=== PATIENT | male | born 1975 | race Caucasian/White ===

== ENCOUNTER → 2020-02-26 | Outpatient (CLI) | payer BC ==
--- NOTE | 2020-02-26 16:33 | US ---
EXAMINATION TYPE: US carotid duplex BILAT DATE OF EXAM: 02/26/2020 COMPARISON: NONE CLINICAL HISTORY: R55 SYNCOPE AND COLLAPSE. syncope EXAM MEASUREMENTS: RIGHT: Peak Systolic Velocity (PSV) cm/sec ----- Right CCA: 79.3 ----- Right ICA: 115.7 ----- Right ECA: 96.8 ICA/CCA ratio: 1.5 RIGHT: End Diastole cm/sec ----- Right CCA: 28.5 ----- Right ICA: 35.7 ----- Right ECA: 31.4 LEFT: Peak Systolic Velocity (PSV) cm/sec ----- Left CCA: 67.7 ----- Left ICA: 73.5 ----- Left ECA: 80.8 ICA/CCA ratio: 1.1 LEFT: End Diastole cm/sec ----- Left CCA: 24.1 ----- Left ICA: 16.9 ----- Left ECA: 25.6 VERTEBRALS (direction of flow): Right Vertebral: Antegrade Left Vertebral: Antegrade Rhythm: Normal Edge scale images show mild peripheral hyperechoic plaque at carotid bulb level bilaterally by veloci ty measurements and ratios in the visualized portion of both internal carotid arteries is within norm al limits IMPRESSION: Mild plaque bilaterally without hemodynamic significant stenosis seen in either internal carotid artery . Criteria for Assigning % of Stenosis / Diameter reduction (Estimation based on the indirect measurements of the internal carotid artery velocities (ICA PSV). 1. Normal (no stenosis)=ICA PSV < 125 cm/s: ratio < 2.0: ICA EDV<40 cm/s. 2. Less than 50% stenosis=ICA PSV < 125 cm/s: ratio < 2.0: ICA EDV<40 cm/s. 3. 50 to 69% stenosis=ICA PSV of 125 to 230 cm/s: ration 2.0 ? 4.0: ICA EDV 40-100 cm/s. 4. Greater than 70% stenosis to near occlusion= ICA PSV > 230 cm/s: ratio > 4.0: ICA EDV > 100 cm/s. 5. Near occlusion= ICA PSV velocities may be low or undetectable: variable ratio and ICA EDV. 6. Total occlusion=unable to detect flow.
--- NOTE | 2020-02-27 07:33 | ECHOF ---
Referral Reason:R55 Syncope and collapse MEASUREMENTS -------- HEIGHT: 182.9 cm WEIGHT: 85.3 kg BP: RVIDd: 2.6 cm (< 3.3) IVSd: 1.2 cm (0.6 - 1.1) LVIDd: 4.4 cm (3.9 - 5.3) LVPWd: 0.9 cm (0.6 - 1.1) IVSs: 1.4 cm LVIDs: 3.1 cm LVPWs: 1.2 cm LAESV Index (A-L): 20.11 ml/m Ao Diam: 2.8 cm (2.0 - 3.7) AV Cusp: 1.8 cm (1.5 - 2.6) LA Diam: 3.5 cm (2.7 - 3.8) MV EXCURSION: 17.007 mm (> 18.000) MV EF SLOPE: 119 mm/s (70 - 150) EPSS: 0.7 cm MV E Scooby: 0.78 m/s MV DecT: 133 ms MV A Scooby: 0.63 m/s MV E/A Ratio: 1.23 RAP: 5.00 mmHg RVSP: 17.66 mmHg FINDINGS -------- Sinus rhythm. This was a technically good study. LV size, wall thickness and systolic function are normal, with an EF greater than 55%. The left wiliam tricular size is normal. The diastolic filling pattern is normal for the age of the patient 8.58. The right ventricle is normal in size. Normal LA size by volume 22+/-6 ml/m2. The right atrial size is normal. The aortic valve is trileaflet, and appears structurally normal. No aortic stenosis or regurgitation. The mitral valve is normal. Mild mitral regurgitation is present. The tricuspid valve appears structurally normal. Mild tricuspid regurgitation present. Right vent ricular systolic pressure is normal at < 35 mmHg. There is no pulmonic regurgitation present. The aortic root size is normal. There is no pericardial effusion. CONCLUSIONS -------- 1. LV size, wall thickness and systolic function are normal, with an EF greater than 55%. 2. Normal LA size by volume 22+/-6 ml/m2. 3. The aortic valve is trileaflet, and appears structurally normal. No aortic stenosis or regurgitati on. 4. Mild mitral regurgitation is present. 5. Mild tricuspid regurgitation present. 6. There is no pericardial effusion. OPTICS TEST TECHNICIAN: Anali Gamboa RDCS
== END | disposition home or self-care (01) ==
LOC: RADECHMAIN 14:52
PROVIDERS: ATTEND Family Medicine
DX: I08.1 Rheumatic disorders of both mitral and tricuspid valves (principal); R55 Syncope and collapse
CPT/HCPCS: 93306; 93880

== ENCOUNTER → 2022-01-02 | Outpatient (CLI) | payer BC ==
--- NOTE | 2022-01-05 11:31 | MR ---
EXAMINATION TYPE: MR cervical spine wo con DATE OF EXAM: 01/02/2022 INDICATION: Patient age:Male; 46 years old; Reason for study: M54.2, M47.22, M25.78. M50.121.M50.122; Neck pain, numbness in hands/feet. COMPARISON: None. TECHNIQUE: Multi planar, multi sequence imaging was performed utilizing: T1-weighted, T2-weighted, an d turbo inversion recovery imaging of the cervical spine. IV Contrast: None FINDINGS: Alignment: The cervical vertebral bodies have preserved heights. There is straightening of the alignm ent of the cervical spine Bones: There is Modic endplate changes most pronounced at C4-C5 and C5-C6 with osteophyte formation p resent Multilevel degenerative disc disease is noted and most pronounced at the C4-C5 and C5-C6 verte bral levels. Cord: Increased cord signal at C4-C5 and to a lesser extent C5-C6 secondary to severe spinal canal st enosis from degeneration changes at these levels.None Discs: Disc desiccation and narrowing most pronounced at C5-C6 C2-C3: No significant disc pathology. The spinal canal is patent. No neural foraminal stenosis. C3-C4: A disc osteophyte complex is present which minimally narrows the ventral subarachnoid space. Bilateral facet and uncovertebral joint arthropathy are present with mild bilateral neural foraminal stenosis. C4-C5: Disc osteophyte complex which is eccentric right resulting in severe spinal canal stenosis wit h increased cord signal. There is moderate bilateral neural foraminal stenosis at this level. C5-C6: Disc osteophyte complex resulting in severe spinal canal stenosis with increased cord signal. There is severe bilateral neural foraminal stenosis at this level. C6-C7: No significant disc pathology. The spinal canal is patent. Bilateral facet and uncovertebral joint arthropathy are present with moderate to mild right left neural foraminal stenosis. C7-T1: No significant disc pathology. The spinal canal is patent. No neural foraminal stenosis. Findings communicated to Roni lu for Dr. Soto on 01/05/2022 10:53 AM via kimo estrella by Dr. Gunner Yee. IMPRESSION: Myelomalacia most pronounced at C4-C5 and C5-C6 from severe spinal canal stenosis from disc osteophyt e complex's, C4-C5 greater than C5-6. Additional bilateral severe C5-C6 and moderate C4-C5 neural for aminal stenosis.
== END | disposition home or self-care (01) ==
LOC: RADMRIMAIN 15:26
PROVIDERS: ATTEND Orthopaedic Surgery Orthopaedic Surgery of the Spine
DX: M47.22 Other spondylosis with radiculopathy, cervical region (principal); M50.121 Cervical disc disorder at C4-C5 level with radiculopathy; M50.122 Cervical disc disorder at C5-C6 level with radiculopathy; M99.71 Connective tissue and disc stenosis of intervertebral foramina of cervical region; M25.78 Osteophyte, vertebrae; G95.89 Other specified diseases of spinal cord
CPT/HCPCS: 72141

== ENCOUNTER → 2022-02-04 | Outpatient (CLI) | payer BC ==
--- NOTE | 2022-02-04 13:29 | XR ---
EXAMINATION TYPE: XR chest 2V DATE OF EXAM: 02/04/2022 1:16 PM COMPARISON: Chest radiographs from 05/20/2015 TECHNIQUE: XR chest 2V Frontal and lateral views of the chest. CLINICAL INDICATION:Male, 46 years old with history of Z01.818 Pre surgical; FINDINGS: Lungs/Pleura: There is no evidence of pleural effusion, focal consolidation, or pneumothorax. Pulmonary vascularity: Unremarkable. Heart/mediastinum: Cardiomediastinal silhouette is unremarkable. Musculoskeletal: No acute osseous pathology. IMPRESSION: No acute cardiopulmonary disease/process.
[2022-02-04 13:53] LABS: Partial Thromboplastin Time 27.1 sec (22.0-30.0); Prothrombin Time 10.7 sec (9.0-12.0)
[2022-02-04 17:50] LABS: HCT 49.4 % (39.6-50.0); HGB 17.6 g/dL (13.0-17.0); MCH 39.3 pg (27.0-32.0); MCHC 35.6 g/dL (32.0-37.0); MCV 110.3 fL (80.0-97.0); Mean Platelet Volume 9.9 fL (9.5-12.2); NRBC Per 100 WBC 0 /100 WBCS (0.0-0.0); Platelet Count 316 X 10*3/uL (140-440); RBC 4.48 X 10*6/uL (4.40-5.60); RDW 12.9 % (11.5-14.5); WBC 11.51 X 10*3/uL (4.50-10.00)
[2022-02-04 18:53] LABS: Basophils # (A) 0.14 X 10*3/uL (0.00-0.10); Basophils % (A) 1.2 %; Eosinophils % (A) 2.6 %; Immature Grans, Automated 0.4 %; Lymphocytes # (A) 3.18 X 10*3/uL (0.90-5.00); Lymphocytes % (A) 27.6 %; Monocytes % (A) 8.7 %; Neutrophils # (A) 6.84 X 10*3/uL (1.80-7.70); Neutrophils % (A) 59.5 %
[2022-02-04 19:40] LABS: African American GFR (CKD) 116.8 (60.0-200.0); Anion Gap 12.1 mmol/L (10.00-18.00); BUN/Creat Ratio 8.15 Ratio (12.00-20.00); Blood Urea Nitrogen 7.3 mg/dL (9.0-27.0); Calcium 10.2 mg/dL (8.7-10.3); Non-African American GFR(CKD) 100.7 (60.0-200.0); Potassium 4.7 mmol/L (3.5-5.5)
[2022-02-04 22:51] LABS: Appearance,Urine Clear (Clear); Bilirubin,Urine Negative (Negative); Blood,Urine Negative (Negative); Color,Urine Yellow (Yellow); Ketones,Urine Negative (Negative); Nitrite,Urine Negative (Negative); Specific Gravity,Urine 1.008 (1.001-1.030); Urobilinogen,Urine 0.2 (0.2,1.0)
== END | disposition home or self-care (01) ==
LOC: LABPAT 12:38
PROVIDERS: ATTEND Orthopaedic Surgery Orthopaedic Surgery of the Spine
DX: Z01.818 Encounter for other preprocedural examination (principal); M50.020 Cervical disc disorder with myelopathy, mid-cervical region, unspecified level
CPT/HCPCS: 71046; 80048; 81003; 85025; 85610; 85730; 93005

== ENCOUNTER 2022-02-18 08:39 | Inpatient (IN) | payer BC ==
[~2022-02-18 08:39] MED LIST: LIDOCAINE 1% (10MG/ML) FOR IV START INTRADERMA PRN; ONDANSETRON 4 MG/2 ML VIAL IVP ONE
[2022-02-18] MEDS: LACTATED RINGERS 1,000 ML IV SCH (09:30)
[2022-02-18] MEDS ORDERED: DEXAMETHASONE SOD PHOSPHATE 4 MG/ML 1 ML VIAL IVP ONE (09:38)
[2022-02-18] MEDS ORDERED: THROMBIN (BOVINE) 5,000 UNIT VIAL TOPICAL ONE (10:35)
[2022-02-18] MEDS ORDERED: GELATIN SPONGE,ABSORB (LARGE) 1 EACH SPONGE TOPICAL ONE (10:35)
[2022-02-18] MEDS ORDERED: LIDOCAINE 0.5%-EPI 1:200,000 50 ML VIAL SQ ONE (10:35)
[2022-02-18] MEDS ORDERED: ceFAZolin 1,000 MG in SODIUM CHLORIDE 0.9% 1,000 ML IRRIGATION ONE (11:03)
--- NOTE | 2022-02-18 12:07 | XR ---
EXAMINATION TYPE: XR cervical spine 1V DATE OF EXAM: 02/18/2022 COMPARISON: None HISTORY: Needle placement TECHNIQUE: Crosstable lateral mobile cervical spine FINDINGS: Needle is directed to the C5-6 level. IMPRESSION: 1. Crosstable lateral cervical spine for needle localization
[2022-02-18] MEDS ORDERED: CYCLOBENZAPRINE 10 MG TAB PO PRN (12:49)
[2022-02-18] MEDS ORDERED: HYDROmorphone 1 MG/ML 1 ML SYRINGE IVP PRN (12:49)
[2022-02-18] MEDS ORDERED: ONDANSETRON 4 MG/2 ML VIAL IVP PRN (12:49)
[2022-02-18] MEDS ORDERED: HYDROcodone/APAP 5-325MG 1 EACH TAB PO PRN (12:49)
[2022-02-18] MEDS ORDERED: LACTATED RINGERS 1,000 ML IV ONE (12:50)
--- NOTE | 2022-02-18 12:52 | XR ---
EXAMINATION TYPE: XR cervical spine 1V DATE OF EXAM: 02/18/2022 COMPARISON: Earlier exam HISTORY: Post cervical fusion TECHNIQUE: Crosstable lateral cervical spine FINDINGS: Anterior cervical fusion is present C4-C6. Disc spacers are present. IMPRESSION: 1. Post anterior cervical fusion C4-C6
--- NOTE | 2022-02-18 12:56 | P.OP ---
Date of Procedure: 02/18/22 Preoperative Diagnosis: Cervical myelopathy, upper extremity weakness, upper extremity radiculopathy, severe cervical stenosis C4 5 C5 6, herniated nucleus pulposis C4 5 C5 6, degenerative disc disease, ossific spurring, neck pain Postoperative Diagnosis: Cervical myelopathy, upper extremity weakness, upper extremity radiculopathy, severe cervical stenosis C4 5 C5 6, herniated nucleus pulposis C4 5 C5 6, degenerative disc disease, ossific spurring, neck pain Anesthesia: GETA Pathology: none sent Condition: stable Disposition: PACU Description of Procedure: BRIEF OPERATIVE NOTE Preoperative Diagnosis:Cervical myelopathy, upper extremity weakness, upper extremity radiculopathy, severe cervical stenosis C4 5 C5 6, herniated nucleus pulposis C4 5 C5 6, degenerative disc disease, ossific spurring, neck pain Postoperative Diagnosis:Cervical myelopathy, upper extremity weakness, upper extremity radiculopathy, severe cervical stenosis C4 5 C5 6, herniated nucleus pulposis C4 5 C5 6, degenerative disc disease, ossific spurring, neck pain Procedure: Anterior cervical decompression with discectomy and fusion C4 5 C5 6 Partial corpectomy of C5 approximately 50% Placement of interbody graft C4 5 C5 6 Application of anterior cervical plate C4 5 and 6 Surgeon: Dr. Soto Lure Maker: Aubrey Song is present throughout the entire the case persistence during positioning, dissection, exposure, visualization, and all crucial elements of the case as well as closure. Anesthesia: General anesthesia Estimated blood loss: Approximately 100 mL Complications: None apparent Components implanted: K2M Hernando anterior cervical plate system with screws and Vikos interbody allograft bone graft and 1 mL of DBX bone putty Disposition: To recovery room in good stable condition. OPERATIVE INDICATIONS The patient has had long-standing issues in their neck and upper extremities. His been having significant worsening over the past couple of months. He is having weakness in his upper extremities as well. He is having more and more trouble doing regular activities and also has starting have some trouble with his balance. He was exhibiting symptoms of myelopathy and was found have severe stenosis C4 5 C5 6 with disc herniation a correlate well with his neck and upper extremity and myelopathic symptoms. The patient has been through conservative treatment. We discussed various treatment options including surgery, and the patient wishes to proceed with surgery We discussed the risk, patient's alternat josé and benefits of surgery including but not limited to, risk of bleeding risk of infection, risk of need for further surgery, risk of decreased, loss of motion, muscle function, malunion nonunion, hardware failure, nerve damage, paralysis, heart attack, and . OPERATIVE SUMMARY After discussing all the risks, patient alternatives and benefits at length, the patient elected to proceed with surgical intervention, signed informed consent, and presented for their procedure. The patient was seen and examined in the preoperative holding area and the surgical site was marked. The patient was given antibiotics and brought to the operating room. The patient was positioned on the operating room table in a supine position being careful to pad any bony prominences and pressure points. The patient was sedated and intubated by anesthesia in standard fashion. Once the airway and C- spine were stabilized the patient's arms were padded and tucked at her side, with her shoulders gently taped. The head was placed in a donut pad with the neck in good neutral alignment and position. We were careful to maintain the patient's cervical spine and good neutral alignment and position throughout. The patient was prepped and draped in a normal standard fashion. An appropriate timeout and keystone protocol performed. We were able to proceed with the surgery. The local wound area was infiltrated with local anesthetic. An incision was made transversely approximately 2-1/2 cm over the appropriate levels at C5. Dissection was taken down subcutaneously to the level of the platysma which was split in line with its fibers. Dissection was taken with a carotid approach, with the trachea and esophagus medial and the carotid sheath laterally. We dissected down to the anterior surface of the vertebral bodies. Intraoperative x-ray was taken which showed a marker at the appropriate level. With the appropriate level positively confirmed, we were able to proceed with discectomy at the appropriate levels starting at C4 5. All of the operative levels were exposed appropriately. The patient had all their twitches back, and there was no evidence of recurrent laryngeal issue. The wound was copiously irrigated and suctioned dry as had been done periodically throughout the case. At the appropriate level/levels, starting at C5 6 and C4 5 I established an annulotomy with an 11 blade scalpel. A discectomy was performed with a combination of pituitary rongeurs, curettes, a high-speed bur, and Kerrison rongeurs. The posterior longitudinal ligament was taken down as were any faculty criminal justice ior osteophytes. At C5 6 there was some calcified disc material that was adherent to the dura and was unable to be removed. I was able to remove significant portions of the vertebrae at C5 in order to obtain further decompression behind the vertebral body. This was done inferiorly at C5 as well as cephalad at C5 during the decompression and discectomies. This gave good central and bilateral foraminal decompression. With the decompression and partial corpectomy I felt that I did not have to perform a total corpectomy. I removed approximately 50% of the vertebral body for the decompression. As able get excellent central and bilateral foraminal decompression. There is no evidence of any dural tear or leak. The endplates were prepared with a high- speed bur. With the endplates in good parallel position, I was able to size for the appropriate size interbody graft. The wound was irrigated and suctioned dry the graft was prepared and malleted into position. It had good alignment and position with the anterior surface flush with the anterior surface of the vertebral bodies. This was done similarly the appropriate levels at C5 6 and at C4 5. With the grafts intact, I was able to measure and contour and appropriate sized plate. The plate was positioned at the midline over the appropriate levels at C4 5 and 6. Screw holes were established with a hand drill and drill guide. Screws were placed in good alignment and position with excellent bony purchase. They were seated under the locking device. The construct was checked and found to be stable. Intraoperative x-ray was taken which showed good alignment and position of the implants at the appropriate levels. There was no evidence of any dural tear or leak. Good hemostasis was maintained. The wound was copiously irrigated and suctioned dry as had been done periodically throughout the case. The platysma was closed with absorbable suture. The subcutaneous tissue was closed. The subcuticular tissue was closed with absorbable suture. The wound was cleaned and dried and dressed appropriately. A soft cervical collar was placed appropriately. The patient was woken up by anesthesia, extubated, transferred back gently to their hospital bed and brought to the recovery room in good stable condition. The patient will be admitted to the hospital for appropriate postoperative care, medical management and monitoring. We will continue to follow them closely about the postoperative course.
[2022-02-18] MEDS: HYDROmorphone 0.5 MG/0.5 ML SYRINGE IVP PRN ×3 (13:41→20:51)
[2022-02-18] MEDS: SODIUM CHLORIDE 0.9% 1,000 ML IV SCH (14:20)
[2022-02-18] MEDS: BENZOCAINE/MENTHOL LOZENG 1 EACH LOZENGE MUCOUS MEM PRN ×2 (15:33→19:21)
[2022-02-18] MEDS ORDERED: LORazepam 2 MG/ML INJ IV PRN ×3 (17:25)
[2022-02-18] MEDS ORDERED: LORazepam 0.5 MG TAB PO PRN (17:25)
[2022-02-18] MEDS ORDERED: LORazepam 1 MG TAB PO PRN (17:25)
[2022-02-18] MEDS: IPRATROPIUM-ALBUTEROL 3 ML NEB INHALATION PRN (20:35)
[2022-02-19] MEDS: BENZOCAINE/MENTHOL LOZENG 1 EACH LOZENGE MUCOUS MEM PRN ×2 (01:15→07:15)
[2022-02-19] MEDS: HYDROmorphone 0.5 MG/0.5 ML SYRINGE IVP PRN (01:16)
[2022-02-19] MEDS: SODIUM CHLORIDE 0.9% 1,000 ML IV SCH (03:11)
[2022-02-19] MEDS: LACTATED RINGERS 1,000 ML IV SCH (05:33)
[2022-02-19 07:52] VITALS: BP 120/78; RESP 16; TEMP 98
--- NOTE | 2022-02-19 08:21 | P.HPIM ---
History of Present Illness H&P Date: 02/18/22 Patient is a 46-year-old male with asthma, hypertension, and tobacco dependency who presented for elective C4 through 6 anterior cervical decompression with fusion. He tolerated the procedure well without any immediate postoperative complications. Patient seen and examined at bedside. He denies any neck pain. He continues to have some numbness and tingling in his bilateral arms which has been present for 6 months. He denies any lightheadedness, dizziness, nausea, vomiting, chest pain, shortness of breath postoperatively. He does feel himself wheezing a little bit which is not abnormal for him. He was supposed to start on a steroid inhaler several weeks ago, it was cost prohibitive and he did not fill the prescription. He continues to smoke. He denies any recent illnesses. Pertinent positives and negatives as discussed in HPI, a complete review of systems was performed and all other systems are negative. Vital signs reviewed General: nontoxic, no distress, appears at stated age Derm: warm, dry Head: atraumatic, normocephalic, symmetric Eyes: EOMI, no lid lag, anicteric sclera, pupils equal round reactive to light ENT: Nose and ears atraumatic, no thrush, no pharyngeal erythema Neck: soft cervical collar in place Mouth: no lip lesion, mucus membranes moist Cardiovascular: S1S2 reg, no murmur, positive posterior tibial pulse bilateral, no edema, capillary refill less than 2 seconds Lungs: clear to auscultation bilateral, no rhonchi, no rales, no wheeze, no accessory muscle use Abdominal: soft, nontender to palpation, no guarding, no appreciable organomegaly, normal bowel sounds Ext: no gross muscle atrophy, muscle strength 5 out of 5 in all 4 extremities, no contractures Neuro: CN II-XII grossly intact, light touch intact all 4 extremities, finger to nose within normal limits, Psych: Alert, oriented, appropriate affect Assessment/Plan: Patient 46-year-old male status post C4 to C6 anterior cervical decompression with fusion. Hypertension, controlled -Resume metoprolol -Follow blood pressures Asthma, moderate without exacerbation -When necessary bronchodilators -Attempt Advair prescription on discharge as it appears patient has been prescribed this in the past. Nicotine dependency - cessation ETOH use - [facility] Thank you for allowing us to participate in the care of this pleasant patient. Do not hesitate to contact us with questions. Someone can be reached from the [facility] hospitalist group all hours of the day at [phone] or via [employer]. Past Medical History Past Medical History: Asthma, Hypertension, Musculoskeletal Disorder Additional Past Medical History / Comment(s): karen hands are numb, sometimes feet numb, & legs feel weak @times History of Any Multi-Drug Resistant Organisms: None Reported Past Surgical History: Back Surgery Additional Past Surgical History / Comment(s): July 2014 Past Anesthesia/Blood Transfusion Reactions: No Reported Reaction Past Psychological History: No Psychological Hx Reported Smoking Status: Current every day smoker Past Alcohol Use History: Occasional Additional Past Alcohol Use History / Comment(s): down to almost 1ppd since age of 13 Past Drug Use History: None Reported - Past Family History Father Family Medical History: Diabetes Mellitus Mother Family Medical History: No Reported History Medications and Allergies Home Medications Medication Instructions Recorded Confirmed Type Albuterol Sulfate [Proair Hfa] 2 puff INHALATION QID PRN 02/13/22 02/18/22 History Ergocalciferol [Vitamin D2 (1250 1,250 mcg PO WEEKLY 02/13/22 02/18/22 History Mcg = 32381 Iu)] Metoprolol Succinate (ER) [Toprol 50 mg PO DAILY 02/13/22 02/18/22 History Xl] Allergies Allergy/AdvReac Type Severity Reaction Status Date / Time Penicillins Allergy Dyspnea Verified 02/18/22 09:14 Physical Exam Osteopathic Statement: *. No significant issues noted on an osteopathic structural exam other than those noted in the History and Physical/Consult. Vitals: Vital Signs Temp Pulse Resp BP Pulse Ox 02/18/22 16:34 63 113/67 93 L 02/18/22 16:19 90 112/65 94 L 02/18/22 16:03 89 111/74 92 L 02/18/22 15:48 91 120/58 91 L 02/18/22 15:34 96 113/78 93 L 02/18/22 15:18 85 117/76 93 L 02/18/22 15:03 83 117/81 94 L 02/18/22 14:59 98.3 F 78 17 117/81 02/18/22 14:48 72 125/73 90 L 02/18/22 14:33 81 137/83 92 L 02/18/22 14:15 68 16 122/77 92 L 02/18/22 14:00 83 16 135/81 92 L 02/18/22 13:45 69 16 150/85 92 L 02/18/22 13:30 68 16 144/87 96 02/18/22 13:15 67 16 145/83 99 02/18/22 12:58 96.8 F L 66 16 138/90 99 02/18/22 09:22 97.0 F L 81 14 148/80 98 Intake and Output 02/18/22 02/18/22 02/18/22 06:59 14:59 22:59 Intake Total 1751 Output Total 100 Balance 1651 Intake: IV 1751 Output: Estimated Blood Loss 100 Other: Weight 84 kg Thrombosis Risk Factor Assmnt - Choose All That Apply Each Factor Represents 1 point: Age 41-60 years, Obesity (BMI >25) Each Risk Factor Represents 2 Points: Major surgery Thrombosis Risk Factor Assessment Total Risk Factor Score: 4 Thrombosis Risk Factor Assessment Level: Moderate Risk
[2022-02-19] MEDS: IPRATROPIUM-ALBUTEROL 3 ML NEB INHALATION PRN ×2 (08:53→11:49)
[2022-02-19] MEDS ORDERED: METOPROLOL SUCCINATE (ER) 50 MG TAB.ER.24H PO SCH (09:00)
[2022-02-19] MEDS ORDERED: guaiFENesin 600 MG TABLET.ER PO SCH (10:00)
[2022-02-19] MEDS ORDERED: PROPOFOL 10 MG/ML 20 ML VIAL IV ONE (10:31)
[2022-02-19] MEDS ORDERED: ALBUTEROL INHALER 60 PUFF/8 GM INHALER (MHU) INHALATION ONE (10:31)
[2022-02-19] MEDS ORDERED: LIDOCAINE 4% LTA KIT (4 ML) TOPICAL ONE (10:31)
[2022-02-19] MEDS ORDERED: NEOSTIGMINE 1 MG/ML 10 ML VIAL ONE (10:31)
[2022-02-19] MEDS ORDERED: ROCURONIUM 10 MG/ML (5 ML VIAL) IV ONE (10:31)
[2022-02-19] MEDS ORDERED: DEXAMETHASONE SOD PHOS (MDV) 100 MG/10 ML VIAL ONE (10:31)
[2022-02-19] MEDS ORDERED: PHENYLEPHRINE-0.9% NACL SYG 1,000 MCG/10 ML SYRINGE ONE (10:31)
[2022-02-19] MEDS ORDERED: LIDOCAINE 2% INJ 20 MG/ML (2 ML VIAL) ONE (10:31)
[2022-02-19] MEDS ORDERED: fentaNYL (PF) 50 MCG/ML 2 ML AMP ONE (10:31)
[2022-02-19] MEDS ORDERED: MIDAZOLAM 2 MG/2 ML VIAL ONE (10:31)
[2022-02-19] MEDS ORDERED: HYDROmorphone (PF) 1 MG/ML ONE (10:31)
[2022-02-19] MEDS ORDERED: SUCCINYLCHOLINE CHLORIDE 200 MG/10 ML VIAL IV ONE (10:31)
[2022-02-19] MEDS ORDERED: GLYCOPYRROLATE 0.2 MG/ML 2 ML VIAL ONE (10:31)
--- NOTE | 2022-02-19 11:15 | P.DS ---
Providers Date of admission: 02/18/22 08:39 Attending physician: Melisa Soto Consults: 02/18/22 16:29 Consult Physician Routine Consulting Provider: Willi Physician Consult Reason/Comments: medical management Do you want consulting provider notified?: Yes Primary care physician: Joey Eng [place] Hospital Course: The patient presented on the day of admission as per their operative note. He underwent anterior cervical decompression with discectomy and fusion C4 5 C5 6 for his severe cervical stenosis with cervical myelopathy and upper extremity radiculopathy and weakness. He feels his legs and his arms are doing much better. He still has some numbness and tingling in his hands and fingers as expected. He feels his neck is doing well. His tolerating soft diet. Physical Exam The incision site is clean dry and intact. There is no erythema no drainage. There is no purulence no evidence of infection. His neck is soft and supple without any drainage. He swallowing well with soft foods and liquids. Abdomen soft and nontender. Chest has good excursion with deep inspiration and expiration. The patient has active and passive range of motion intact at the upper and lower extremities. There is no acute change in neurologic status. He has good motion at his upper extremities. Hospital Course Postoperative day #1 status post anterior cervical decompression with discectomy and fusion C4 5 C5 6 for his severe cervical stenosis with cervical myelopathy upper extremity radiculopathy and weakness. He feels he is making good progress and he seems to be doing well. The patient has been making good progress postoperatively. I explained to them that his likely that he will have healing of the nerves over the next several months to a over a whole year. We do not expect acute resolution of the symptoms but it is encouraging that he is making progress. They have completed the prophylactic antibiotics without any signs or symptoms of infection. The patient has been able to advance their diet, and is tolerating diet adequately. The pain was initially controlled with IV medications and is now controlled appropriately with oral medications. The patient has been able to increase their mobilization. The patient has progressed appropriately. I think they are in good stable condition for discharge today. They will be sent home with appropriate prescriptions. I answered their questions to the best of my ability in a language that they can understand and they are agreeable with the plan. They will follow up as directed in approximately 2 weeks or sooner if he is having problems. Patient Condition at Discharge: Good Plan - Discharge Summary Discharge Rx Participant: Yes New Discharge Prescriptions: New HYDROcodone/APAP 5-325MG [[place] 5-325] 1 tab PO Q4HR PRN #42 tab PRN Reason: Pain No Action Metoprolol Succinate (ER) [Toprol Xl] 50 mg PO DAILY Albuterol Sulfate [Proair Hfa] 2 puff INHALATION QID PRN PRN Reason: Shortness Of Breath Ergocalciferol [Vitamin D2 (1250 Mcg = 69820 Iu)] 1,250 mcg PO WEEKLY Discharge Medication List Albuterol Sulfate [Proair Hfa] 2 puff INHALATION QID PRN 02/13/22 [History] Ergocalciferol [Vitamin D2 (1250 Mcg = 55745 Iu)] 1,250 mcg PO WEEKLY 02/13/22 [History] Metoprolol Succinate (ER) [Toprol Xl] 50 mg PO DAILY 02/13/22 [History] HYDROcodone/APAP 5-325MG [[place] 5-325] 1 tab PO Q4HR PRN #42 tab 02/19/22 [Rx] Follow up Appointment(s)/Referral(s): Melisa Soto DO [Doctor of Osteopathic Medicine] - 2 Weeks Activity/Diet/Wound Care/Special Instructions: Keep site clean. May shower with waterproof Tegaderm intact. Do not soak in a tub. After 72 hours postoperatively, patient May remove dressing and then may shower with area uncovered. Leave glue intact and allow it to fray off on its own. May ambulate as tolerated. Avoid heavy or rigorous activity. No repetitive bending twisting or lifting. No overhead work. Discharge Disposition: HOME SELF-CARE
[2022-02-19 12:01] VITALS: PULSE 80
--- NOTE | 2022-02-19 16:16 | P.PN ---
Subjective Progress Note Date: 02/19/22 (delayed charting seen at 0915) Patient is a 46-year-old male with asthma, hypertension, and tobacco dependency who presented for elective C4 through 6 anterior cervical decompression with fusion. He tolerated the procedure well without any immediate postoperative complications. Patient seen and examined at bedside. He has some pain in his back. He continues to have a sore throat. Denies any chest pain or shortness of breath. General: nontoxic, no distress, appears at stated age Derm: warm, dry Head: atraumatic, normocephalic, symmetric, softcervical collar in place Cardiovascular: S1S2 reg, no murmur, positive posterior tibial pulse bilateral, Lungs: CTA bilateral, no rhonchi, no rales , no accessory muscle use Abdominal: soft, nontender to palpation, no guarding, no appreciable organomegaly Ext: no gross muscle atrophy, no edema, no contractures Neuro: CN II-XI grossly intact, moving all 4 shoulders independently Psych: Alert, oriented, appropriate affect Assessment/plan: Patient 46-year-old male status post C4 to C6 anterior cervical decompression with fusion. Hypertension, controlled - metoprolol -Follow blood pressures Asthma, moderate without exacerbation -When necessary bronchodilators Nicotine dependency - cessation ETOH use - CIWA medically optimized for discharge Thank you for allowing us to participate in the care of this pleasant patient. Do not hesitate to contact us with questions. Someone can be reached from the [facility] hospitalist group all hours of the day at [phone] or via perfect serve. Objective - Vital Signs Vital signs: Vital Signs Temp 98.0 F 02/19/22 07:10 Pulse 80 02/19/22 12:00 Resp 16 02/19/22 07:10 BP 120/78 02/19/22 07:10 Pulse Ox 93 L 02/19/22 07:10 FiO2 Intake & Output 02/18/22 02/19/22 02/19/22 18:59 06:59 18:59 Intake Total 2351 240 Output Total 100 Balance 2251 240 Weight 84 kg Intake: IV 1751 Intake, IV Titration 600 Amount Sodium Chloride 0.9% 1, 600 000 ml @ 75 mls/hr IV . [id number] ORLY Rx#:[id number] Oral 240 Output: Estimated Blood Loss 100 Other: # Voids 3
== END 2022-02-19 12:58 | disposition home or self-care (01) | DRG 472 ==
LOC: 2ORMAIN 08:39 → EDSTATUS 10:00 → 4SSUR 13:47
PROVIDERS: ADMIT Orthopaedic Surgery Orthopaedic Surgery of the Spine; ATTEND Orthopaedic Surgery Orthopaedic Surgery of the Spine
PROC: 0RB30ZZ Excision of Cervical Vertebral Disc, Open Approach (ICD-10-PCS; 2022-02-18)
PROC: 0RG20K0 Fusion of 2 or more Cervical Vertebral Joints with Nonautologous Tissue Substitute, Anterior Approach, Anterior Column, Open Approach (ICD-10-PCS; 2022-02-18)
PROC: 0PB30ZZ Excision of Cervical Vertebra, Open Approach (ICD-10-PCS; 2022-02-18)
PROC: HZ2ZZZZ Detoxification Services for Substance Abuse Treatment (ICD-10-PCS; 2022-02-18)
PROC: 0RG20A0 Fusion of 2 or more Cervical Vertebral Joints with Interbody Fusion Device, Anterior Approach, Anterior Column, Open Approach (ICD-10-PCS; principal; 2022-02-18 10:00)
DX: M50.021 Cervical disc disorder at C4-C5 level with myelopathy (principal); G95.9 Disease of spinal cord, unspecified; M48.02 Spinal stenosis, cervical region; F10.90 Alcohol use, unspecified, uncomplicated; J45.998 Other asthma; I10 Essential (primary) hypertension; F17.210 Nicotine dependence, cigarettes, uncomplicated; M50.121 Cervical disc disorder at C4-C5 level with radiculopathy; M77.8 Other enthesopathies, not elsewhere classified; Z88.0 Allergy status to penicillin
CPT/HCPCS: 72020; 94640